=== PATIENT | female | born 1990 | race Caucasian/White ===

== ENCOUNTER 2020-01-17 07:05 | Inpatient (IN) ==
[2020-01-17] MEDS ORDERED: LACTATED RINGERS 1,000 ML IV SCH ×2 (07:18→11:30)
[2020-01-17] MEDS ORDERED: BUPIVACAINE MPF 0.5% /EPI 30 ML VIAL ONE (07:35)
[2020-01-17] MEDS ORDERED: BUPIVACAINE SPINAL 0.75% 2 ML AMP SPINAL ONE (07:35)
[2020-01-17] MEDS ORDERED: LACTATED RINGERS 1,000 ML IV ONE ×2 (07:36→08:29)
[2020-01-17] MEDS ORDERED: PHENYLEPHRINE 1 MG/10 ML SYRINGE IV ONE (07:36)
[2020-01-17] MEDS ORDERED: MORPHINE 10 MG/10 ML VIAL ONE (07:36)
[2020-01-17] MEDS ORDERED: ONDANSETRON 4 MG/2 ML VIAL ONE (07:36)
[2020-01-17] MEDS ORDERED: DEXAMETHASONE 4 MG/1 ML VIAL ONE (07:36)
[2020-01-17] MEDS ORDERED: ceFAZolin 2,000 MG in PREMIX 1 EACH IV ONE (07:49)
[2020-01-17] MEDS ORDERED: CITRIC ACID/SODIUM CITRATE 30 ML UDCUP PO ONE (07:49)
[2020-01-17] MEDS ORDERED: OXYTOCIN/LR 30 UNIT/1,000 ML BAG IV ONE (08:27)
[2020-01-17] MEDS ORDERED: OXYTOCIN 10 UNIT/ML VIAL IM ONE (08:27)
[2020-01-17] MEDS ORDERED: FAMOTIDINE 20 MG/2 ML VIAL IV ONE (08:29)
[2020-01-17 08:45] LABS: Basophils % 0.5 % (0.0-0.8); Eosinophils % 0.3 % (0.00-10.9); Hematocrit 33.7 VOL% (35.7-47.0); Hemoglobin 10.6 GM/DL (12.0-16.0); Immature Granulocytes % 0.7 %; Immature Granulocytes Absolute 0.06 #; Lymphocytes # 1.8 10*3/uL (1.4-4.0); Lymphocytes % 20.2 % (21.3-54.2); Mean Corpuscular HGB Conc 31.5 GM/DL (32-36); Mean Corpuscular Volume 91.3 FL (87-102); Mean Platelet Volume 9.8 FL (9.6-12.0); Monocytes % 8.7 % (1.7-12.7); Neutrophils % 69.6 % (38.7-73.9); Platelet Count 269 T/CUMM (130-400); Red Blood Count 3.69 MC/CUMM (3.8-5.5); Red Cell Distribution Width 13.6 % (9.3-17.3); White Blood Count 8.8 T/CUMM (4-12)
[2020-01-17] MEDS ORDERED: ONDANSETRON 4 MG/2 ML VIAL IV PRN (11:24)
[2020-01-17] MEDS ORDERED: MAGNESIUM HYDROXIDE SUSP 30 ML UDCUP PO PRN (11:24)
[2020-01-17] MEDS ORDERED: ACETAMINOPHEN 325 MG TABLET PO PRN (11:24)
[2020-01-17] MEDS ORDERED: SIMETHICONE CHEW 80 MG TABLET PO PRN (11:24)
[2020-01-17] MEDS ORDERED: OXYTOCIN/LR 20 UNIT/1,000 ML BAG IV ONE (11:24)
[2020-01-17] MEDS ORDERED: IBUPROFEN 800 MG TABLET PO PRN (11:24)
[2020-01-17] MEDS ORDERED: RHO(D) IMMUNE GLOBULIN 300 MCG SYRINGE IM ONE (11:24)
[2020-01-17 11:31] LABS: Cord Venous Blood HCO3 20.3 MMOL/L; Cord Venous Blood PCO2 34.6 MMHG; Cord Venous Blood PO2 27.1 MMHG
[2020-01-17 11:34] LABS: Apearance,Urine CLEAR (Clear); Bacteria,Urine Occasional /HPF (Few); Bilirubin,Urine Negative (Negative); Blood, Urine Negative (Negative); Glucose,Urine (UA) Negative (Negative); Ketones,Urine 20 mg/dL (Negative); Nitrite,Urine Negative (Negative); Protein,Urine Negative; Urine Color Straw (Yellow); Urine Specific Gravity 1.008 (1.001-1.035); Urine Urobilinogen < 2.0 EU/DL (0.2-1.0); WBC,Urine <1 /HPF (0-6)
[2020-01-17] MEDS ORDERED: KETOROLAC 30 MG/1 ML VIAL ONE (11:43)
[2020-01-17] MEDS ORDERED: ceFAZolin 1,000 MG in SYRINGE 1 EACH IV SCH (16:00)
[2020-01-17] MEDS: ceFAZolin 1,000 MG in SYRINGE 1 EACH IV SCH (18:10)
[2020-01-17 18:48] LABS: Basophils % 0.1 % (0.0-0.8); Hematocrit 29.3 VOL% (35.7-47.0); Hemoglobin 9.5 GM/DL (12.0-16.0); Immature Granulocytes % 0.7 %; Immature Granulocytes Absolute 0.13 #; Lymphocytes # 1.2 10*3/uL (1.4-4.0); Lymphocytes % 6.6 % (21.3-54.2); Mean Corpuscular HGB Conc 32.4 GM/DL (32-36); Mean Corpuscular Volume 89.3 FL (87-102); Mean Platelet Volume 9.7 FL (9.6-12.0); Monocytes % 3.5 % (1.7-12.7); Neutrophils % 89.1 % (38.7-73.9); Platelet Count 238 T/CUMM (130-400); Red Blood Count 3.28 MC/CUMM (3.8-5.5); Red Cell Distribution Width 13.4 % (9.3-17.3); White Blood Count 18.3 T/CUMM (4-12)
[2020-01-17] MEDS: DOCUSATE SODIUM 100 MG CAPSULE PO SCH (23:48)
[2020-01-18] MEDS: IBUPROFEN 800 MG TABLET PO PRN ×4 (01:38→20:47)
[2020-01-18] MEDS: ceFAZolin 1,000 MG in SYRINGE 1 EACH IV SCH (01:38)
[2020-01-18 04:47] LABS: Basophils % 0.2 % (0.0-0.8); Eosinophils % 0.1 % (0.00-10.9); Hematocrit 27.4 VOL% (35.7-47.0); Hemoglobin 8.9 GM/DL (12.0-16.0); Immature Granulocytes % 0.5 %; Immature Granulocytes Absolute 0.07 #; Lymphocytes # 2.7 10*3/uL (1.4-4.0); Lymphocytes % 18.9 % (21.3-54.2); Mean Corpuscular HGB Conc 32.5 GM/DL (32-36); Monocytes % 8.9 % (1.7-12.7); Neutrophils % 71.4 % (38.7-73.9); Platelet Count 248 T/CUMM (130-400); Red Blood Count 3.08 MC/CUMM (3.8-5.5); Red Cell Distribution Width 13.4 % (9.3-17.3); White Blood Count 14.1 T/CUMM (4-12)
[2020-01-18] MEDS: METOCLOPRAMIDE 10 MG TABLET PO SCH ×2 (07:35→18:23)
[2020-01-18] MEDS: DOCUSATE SODIUM 100 MG CAPSULE PO SCH ×2 (09:03→20:48)
[2020-01-18] MEDS: MULTIVITAMIN (PRENATAL) TABLET PO SCH (09:37)
[2020-01-19] MEDS: METOCLOPRAMIDE 10 MG TABLET PO SCH ×3 (00:38→17:04)
[2020-01-19] MEDS: IBUPROFEN 800 MG TABLET PO PRN ×4 (02:26→23:32)
[2020-01-19] MEDS: MULTIVITAMIN (PRENATAL) TABLET PO SCH (10:41)
[2020-01-19] MEDS: DOCUSATE SODIUM 100 MG CAPSULE PO SCH ×2 (17:03→21:00)
[2020-01-20] MEDS: IBUPROFEN 800 MG TABLET PO PRN (07:54)
[2020-01-20] MEDS: MULTIVITAMIN (PRENATAL) TABLET PO SCH (08:00)
[2020-01-20] MEDS: DOCUSATE SODIUM 100 MG CAPSULE PO SCH (08:00)
[2020-01-20 08:03] VITALS: BP 112/67
[2020-01-20] MEDS ORDERED: DIPH/TET/ACEL PERT BOOSTER VACCINE 0.5 ML VIAL IM ONE (09:56)
== END 2020-01-20 10:45 | disposition home or self-care (01) | DRG 788 ==
LOC: N.LDOUT 07:05 → N.LD 07:10 → N.OB 14:22
PROVIDERS: ADMIT Obstetrics & Gynecology; ATTEND Obstetrics & Gynecology
PROC: LDCSECT (ICD-10-PCS; 2020-01-17 10:30)

== ENCOUNTER 2022-07-22 05:11 | Inpatient (IN) ==
[2022-07-22] MEDS ORDERED: TRANEXAMIC ACID 1,000 MG in SODIUM CHLORIDE 0.9% 100 ML IV PRN (05:26)
[2022-07-22] MEDS ORDERED: ONDANSETRON 4 MG/2 ML VIAL IV PRN (05:26)
[2022-07-22] MEDS ORDERED: LACTATED RINGERS 1,000 ML IV ONE ×2 (05:26→11:55)
[2022-07-22] MEDS ORDERED: miSOPROStoL 200 MCG TABLET RECTAL PRN (05:26)
[2022-07-22] MEDS ORDERED: CARBOPROST TROMETHAMINE 250 MCG/ML AMP IM PRN (05:26)
[2022-07-22] MEDS ORDERED: OXYTOCIN/LR 20 UNIT/1,000 ML BAG IV ONE (05:26)
[2022-07-22] MEDS ORDERED: METHYLERGONOVINE 0.2 MG/1 ML AMP IM PRN (05:26)
[2022-07-22] MEDS ORDERED: OXYTOCIN/LR 20 UNIT/1,000 ML BAG IV SCH (05:30)
[2022-07-22 05:48] LABS: Basophils % 0.5 % (0.0-0.8); Eosinophils % 0.5 % (0.00-10.9); Hematocrit 37.5 VOL% (35.7-47.0); Hemoglobin 12.4 GM/DL (12.0-16.0); Immature Granulocytes % 1.4 %; Immature Granulocytes Absolute 0.12 #; Lymphocytes # 2.5 10*3/uL (1.4-4.0); Lymphocytes % 28.3 % (21.3-54.2); Mean Corpuscular HGB Conc 33.1 GM/DL (32-36); Mean Corpuscular Volume 90.1 FL (87-102); Mean Platelet Volume 9.5 FL (9.6-12.0); Monocytes # 0.6 10*3/uL (0.11-0.8); Monocytes % 6.8 % (1.7-12.7); Neutrophils % 62.5 % (38.7-73.9); Platelet Count 309 T/CUMM (130-400); Red Blood Count 4.16 MC/CUMM (3.8-5.5); Red Cell Distribution Width 15.7 % (9.3-17.3); White Blood Count 8.8 T/CUMM (4-12)
[2022-07-22 05:51] LABS: Bacteria,Urine Occasional /HPF (Few); Bilirubin,Urine Negative (Negative); Blood, Urine Negative (Negative); Glucose,Urine (UA) Negative (Negative); Ketones,Urine Negative (Negative); Nitrite,Urine Negative (Negative); Protein,Urine Negative (Negative); RBC,Urine <1 /HPF (0-4); Squamous Epithelial Cell,Urine Occasional /HPF (0-10); Urine Appearance CLEAR (Clear); Urine Color Yellow (Yellow); Urine Specific Gravity 1.006 (1.001-1.035); Urine Urobilinogen < 2.0 eU/dL (<2.0)
[2022-07-22 06:06] LABS: Albumin 2.8 G/DL (3.4-5.0); Bilirubin,Total 0.5 MG/DL (0.20-1.00); Calcium 9.2 MG/DL (8.5-10.1); Osmolality,Calculated 277.3 MOS/KG (273-304); Potassium 3.5 MMOL/L (3.5-5.1); Total Protein 6.9 G/DL (6.4-8.2)
[2022-07-22] MEDS: LACTATED RINGERS 1,000 ML IV SCH ×4 (06:17→22:16)
[2022-07-22] MEDS ORDERED: DINOPROSTONE 10 MG VAG.INSERT VAG ONE (07:00)
[2022-07-22] MEDS ORDERED: CITRIC ACID/SODIUM CITRATE 30 ML UDCUP PO ONE (11:55)
[2022-07-22] MEDS ORDERED: FAMOTIDINE 20 MG/2 ML VIAL IV ONE (11:55)
[2022-07-22] MEDS ORDERED: ePHEDrine 50 MG/ML VIAL IV PRN (11:55)
[2022-07-22] MEDS ORDERED: NALOXONE 0.4 MG/ML VIAL IV PRN (11:56)
[2022-07-22] MEDS ORDERED: diphenhydrAMINE 50 MG/1 ML VIAL IV PRN ×2 (11:56)
[2022-07-22] MEDS ORDERED: PROMETHAZINE 25 MG/1 ML VIAL IM ONE (11:56)
[2022-07-22] MEDS ORDERED: hydrOXYzine HCL 25 MG/1 ML VIAL IM PRN (11:56)
[2022-07-22] MEDS: fentaNYL 2 MCG/ROPIV 0.2% EPID 100 ML EPIDURAL SCH ×2 (13:34→21:04)
[2022-07-22 15:51] LABS: Bilirubin,Urine Negative (Negative); Blood, Urine Negative (Negative); Glucose,Urine (UA) Negative (Negative); Ketones,Urine 80 mg/dL (Negative); Mucus,Urine Occasional /LPF (Occasional); Nitrite,Urine Negative (Negative); Protein,Urine Negative (Negative); RBC,Urine <1 /HPF (0-4); Urine Appearance CLEAR (Clear); Urine Color Yellow (Yellow); Urine Specific Gravity 1.012 (1.001-1.035); Urine Urobilinogen < 2.0 eU/dL (<2.0)
[2022-07-22] MEDS ORDERED: ACETAMINOPHEN 500 MG TABLET PO PRN (20:56)
[2022-07-22] MEDS ORDERED: AMPICILLIN INJ 2,000 MG in SODIUM CHLORIDE 0.9% 100 ML IV SCH (21:00)
[2022-07-22 21:57] LABS: Basophils # 0.1 10*3/uL (0.0-0.2); Basophils % 0.3 % (0.0-0.8); Hematocrit 34.5 VOL% (35.7-47.0); Hemoglobin 11.4 GM/DL (12.0-16.0); Immature Granulocytes % 0.8 %; Immature Granulocytes Absolute 0.13 #; Lymphocytes # 1.3 10*3/uL (1.4-4.0); Lymphocytes % 8.2 % (21.3-54.2); Mean Corpuscular Volume 90.1 FL (87-102); Mean Platelet Volume 9.5 FL (9.6-12.0); Monocytes # 1.1 10*3/uL (0.11-0.8); Monocytes % 6.8 % (1.7-12.7); Neutrophils % 83.9 % (38.7-73.9); Platelet Count 288 T/CUMM (130-400); Red Blood Count 3.83 MC/CUMM (3.8-5.5); Red Cell Distribution Width 15.7 % (9.3-17.3); White Blood Count 16.3 T/CUMM (4-12)
[2022-07-22 23:58] LABS: Cord Venous Blood HCO3 20.3 MMOL/L; Cord Venous Blood PCO2 29.8 MMHG
[2022-07-23] MEDS: LACTATED RINGERS 1,000 ML IV SCH (01:59)
[2022-07-23] MEDS ORDERED: OXYTOCIN/LR 20 UNIT/1,000 ML BAG IV ONE (02:26)
[2022-07-23] MEDS ORDERED: LANOLIN 50% CREAM 0.3 OZ TUBE TOP PRN (02:26)
[2022-07-23] MEDS ORDERED: oxyCODONE/ACETAMINOPHEN 5-325 MG TABLET PO PRN (02:26)
[2022-07-23] MEDS ORDERED: BISACODYL 10 MG SUPP RECTAL PRN (02:26)
[2022-07-23] MEDS ORDERED: BENZOCAINE 20%/MENTHOL 0.5% SPRAY 56 GM CAN TOP PRN (02:26)
[2022-07-23] MEDS ORDERED: WITCH HAZEL PADS 100/JAR TOP PRN (02:26)
[2022-07-23] MEDS ORDERED: ACETAMINOPHEN 325 MG TABLET PO PRN (02:26)
[2022-07-23] MEDS ORDERED: HYDROCORTISONE 2.5% RECTAL CREAM 30 GM TUBE TOP PRN (02:26)
[2022-07-23] MEDS: IBUPROFEN 800 MG TABLET PO PRN ×2 (02:43→16:50)
[2022-07-23] MEDS ORDERED: MEASLES/MUMPS/RUBELLA VACCINE 0.5 ML VIAL SUBCUT ONE (03:00)
[2022-07-23] MEDS ORDERED: DIPH/TET/ACEL PERT BOOSTER VACCINE 0.5 ML VIAL IM ONE (03:00)
[2022-07-23] MEDS ORDERED: RHO(D) IMMUNE GLOBULIN 300 MCG SYRINGE IM ONE (03:00)
[2022-07-23] MEDS: oxyCODONE/ACETAMINOPHEN 5-325 MG TABLET PO PRN ×2 (04:16→21:01)
[2022-07-23 05:22] LABS: Basophils # 0.1 10*3/uL (0.0-0.2); Basophils % 0.2 % (0.0-0.8); Hematocrit 34.8 VOL% (35.7-47.0); Hemoglobin 11.6 GM/DL (12.0-16.0); Immature Granulocytes % 0.9 %; Immature Granulocytes Absolute 0.26 #; Lymphocytes # 1.7 10*3/uL (1.4-4.0); Mean Corpuscular HGB Conc 33.3 GM/DL (32-36); Mean Corpuscular Volume 90.4 FL (87-102); Mean Platelet Volume 9.6 FL (9.6-12.0); Monocytes # 1.7 10*3/uL (0.11-0.8); Monocytes % 5.8 % (1.7-12.7); Neutrophils % 87.1 % (38.7-73.9); Platelet Count 268 T/CUMM (130-400); Red Blood Count 3.85 MC/CUMM (3.8-5.5); Red Cell Distribution Width 15.9 % (9.3-17.3); White Blood Count 28.8 T/CUMM (4-12)
[2022-07-23 05:42] LABS: Band Neutrophils 2 % (0-10); Lymphocytes 5 % (20-55); Platelet Estimate Adequate; Total Cells Counted 100
[2022-07-23] MEDS ORDERED: AMPICILLIN INJ 2,000 MG in SODIUM CHLORIDE 0.9% 100 ML IV SCH (06:30)
[2022-07-23] MEDS: DOCUSATE SODIUM 100 MG CAPSULE PO SCH ×2 (10:28→20:57)
[2022-07-23] MEDS: AMPICILLIN INJ 2,000 MG in SODIUM CHLORIDE 0.9% 100 ML IV SCH (16:30)
[2022-07-24] MEDS: AMPICILLIN INJ 2,000 MG in SODIUM CHLORIDE 0.9% 100 ML IV SCH ×3 (01:10→14:19)
[2022-07-24 09:07] LABS: Basophils # 0.1 10*3/uL (0.0-0.2); Basophils % 0.4 % (0.0-0.8); Eosinophils # 0.1 10*3/uL (0.0-0.87); Eosinophils % 0.5 % (0.00-10.9); Hematocrit 35.4 VOL% (35.7-47.0); Hemoglobin 11.5 GM/DL (12.0-16.0); Immature Granulocytes % 1.3 %; Immature Granulocytes Absolute 0.18 #; Lymphocytes % 14.7 % (21.3-54.2); Mean Corpuscular HGB Conc 32.5 GM/DL (32-36); Mean Corpuscular Volume 90.8 FL (87-102); Mean Platelet Volume 9.5 FL (9.6-12.0); Monocytes # 0.5 10*3/uL (0.11-0.8); Monocytes % 3.5 % (1.7-12.7); Neutrophils % 79.6 % (38.7-73.9); Platelet Count 266 T/CUMM (130-400); Red Cell Distribution Width 16.1 % (9.3-17.3); White Blood Count 13.9 T/CUMM (4-12)
[2022-07-24] MEDS: DOCUSATE SODIUM 100 MG CAPSULE PO SCH (10:16)
[2022-07-24 10:51] VITALS: BP 108/65
== END 2022-07-24 12:05 | disposition home or self-care (01) | DRG 807 ==
LOC: N.LD 05:11 → N.OB 07-23 09:06
PROVIDERS: ADMIT Obstetrics & Gynecology; ATTEND Obstetrics & Gynecology